=== PATIENT | male | born 1985 | race Caucasian/White ===

== ENCOUNTER 2016-06-16 09:56 | Inpatient (IN) | payer MEDICAID ==
[~2016-06-16] VITALS: Ht 185.4 cm; Wt 104.4 kg
[2016-06-16 10:34] LABS: Basophils # (auto) 0 uL; Basophils % (auto) 0.3 % (0.0-2.0); Eosinophils # (auto) 0.1 uL; Eosinophils % (auto) 1.8 % (0.0-7.0); Hematocrit 41.8 % (41.0-53.0); Hemoglobin 13.9 g/dL (13.5-17.5); Lymphocytes % (auto) 30.8 % (10.0-50.0); Mean Corpuscular Hemoglobin 27.8 pg (28.0-32.0); Mean Corpuscular Hgb Conc. 33.3 g/dL (32.0-36.0); Mean Corpuscular Volume 83.5 fL (80.0-100.0); Mean Platelet Volume 7.6 fL (7.4-10.4); Monocytes # (auto) 0.4 uL; Monocytes % (auto) 5.7 % (0.0-12.0); Neutrophils % (auto) 61.4 % (37.0-80.0); Platelet Count (auto) 167 10^3/uL (140-450); White Blood Cell 6.4 10^3/uL (4.4-10.8)
[2016-06-16 11:10] LABS: BUN/Creatinine Ratio 15.2; Bilirubin, Total 0.4 mg/dL (0.2-1.0); Calcium 8.8 mg/dL (8.5-10.1); Potassium 3.8 mmol/L (3.5-5.1); Total Protein 7.6 g/dL (6.4-8.2)
[2016-06-16] MEDS ORDERED: SODIUM CHLORIDE 0.9% 1,000 ML IVB ONE (11:27)
[2016-06-16 11:29] LABS: Urine RBC None Seen /hpf (0 - 3)
[2016-06-16 12:30] LABS: Urine Bilirubin Negative (Negative); Urine Blood Negative /uL (Negative); Urine Color Yellow (Yellow); Urine Glucose Normal (Normal); Urine Ketone Negative (Negative); Urine Nitrite Negative (Negative); Urine Urobilinogen Normal (Negative); Urine pH 5.5 (5.0-8.0)
[2016-06-16] MEDS ORDERED: ONDANSETRON HCL 4 MG/2 ML VIAL IV ONE (13:15)
[2016-06-16] MEDS ORDERED: NALBUPHINE HCL 10 MG/1ml INJECTION IV ONE (13:15)
[2016-06-16] MEDS ORDERED: SODIUM CHLORIDE 0.9% 1,000 ML IV ONE ×2 (13:15→19:00)
[2016-06-16] MEDS ORDERED: PROCHLORPERAZINE EDISYLATE 5 MG/ML 2ML VIAL IV PRN (14:45)
[2016-06-16] MEDS ORDERED: MORPHINE SULF INJ 2 MG/ML SYRINGE 1ML IV PRN (14:45)
[2016-06-16] MEDS: SODIUM CHLORIDE 0.9% 1,000 ML IV SCH ×2 (14:54→22:10)
[2016-06-16] MEDS ORDERED: metroNIDAZOLE 500MG/100ML 100 ML IV ONE (15:00)
[2016-06-16] MEDS ORDERED: cefTRIAXone 1GM/50ML D5W 50 ML IV ONE (15:00)
[2016-06-16] MEDS ORDERED: FAMOTIDINE (10MG/ML) 2ML VL IV ONE (15:00)
[2016-06-16 15:08] LABS: Cholesterol 109 mg/dL (< 200); HDL Cholesterol 28 mg/dL (40-59); LDL Cholesterol 77 mg/dL (< 100); Triglycerides 125 mg/dL (< 150)
[2016-06-16 17:00] VITALS: BP 86/49
[2016-06-16 22:00] VITALS: BP 86/83
[2016-06-16] MEDS: FAMOTIDINE (10MG/ML) 2ML VL IV SCH (22:16)
[2016-06-16] MEDS: metroNIDAZOLE 500MG/100ML 100 ML IV SCH (22:16)
[2016-06-16 23:00] VITALS: BP 91/40
[2016-06-16] MEDS ORDERED: ALBUMIN 5% 250 ML IV ONE (23:45)
[2016-06-17] MEDS ORDERED: ALBUMIN 5% 250 ML IV ONE (00:15)
[2016-06-17 05:00] VITALS: BP 98/53
[2016-06-17] MEDS: SODIUM CHLORIDE 0.9% 1,000 ML IV SCH ×4 (06:07→23:43)
[2016-06-17] MEDS: metroNIDAZOLE 500MG/100ML 100 ML IV SCH (06:07)
[2016-06-17 06:29] LABS: Basophils # (auto) 0 uL; Basophils % (auto) 0.4 % (0.0-2.0); Eosinophils # (auto) 0.1 uL; Eosinophils % (auto) 2.5 % (0.0-7.0); Hematocrit 36.6 % (41.0-53.0); Hemoglobin 12.2 g/dL (13.5-17.5); Lymphocytes # (auto) 1.8 uL; Lymphocytes % (auto) 35.3 % (10.0-50.0); Mean Corpuscular Hemoglobin 27.9 pg (28.0-32.0); Mean Corpuscular Hgb Conc. 33.3 g/dL (32.0-36.0); Mean Corpuscular Volume 83.9 fL (80.0-100.0); Mean Platelet Volume 7.9 fL (7.4-10.4); Monocytes # (auto) 0.3 uL; Monocytes % (auto) 6.6 % (0.0-12.0); Neutrophils # (auto) 2.7 uL; Neutrophils % (auto) 55.2 % (37.0-80.0); Platelet Count (auto) 138 10^3/uL (140-450); Red Cell Distribution Width 13.9 % (11.6-16.0)
[2016-06-17 06:42] LABS: Potassium 3.9 mmol/L (3.5-5.1)
[2016-06-17 06:46] LABS: Albumin 3.2 g/dL (3.4-5.0); BUN/Creatinine Ratio 12.1; Calcium 7.8 mg/dL (8.5-10.1)
[2016-06-17 06:49] LABS: Bilirubin, Total 0.6 mg/dL (0.2-1.0); Total Protein 5.9 g/dL (6.4-8.2)
[2016-06-17 09:00] VITALS: BP 97/55
[2016-06-17] MEDS ORDERED: cefTRIAXone 1GM/50ML D5W 50 ML IV SCH (09:00)
[2016-06-17] MEDS: FAMOTIDINE (10MG/ML) 2ML VL IV SCH ×2 (09:16→21:47)
[2016-06-17 13:00] VITALS: BP 104/64
[2016-06-17] MEDS ORDERED: HYDROcodone-ACET 5/325MG TAB PO PRN (13:00)
[2016-06-17] MEDS ORDERED: MORPHINE SULF INJ 2 MG/ML SYRINGE 1ML IV PRN (13:00)
[2016-06-17] MEDS: HYDROcodone-ACET 5/325MG TAB PO PRN ×2 (14:43→20:30)
[2016-06-17 17:00] VITALS: BP 104/63
[2016-06-17 22:00] VITALS: BP 116/64
[2016-06-18 05:45] VITALS: BP 105/65
[2016-06-18] MEDS: SODIUM CHLORIDE 0.9% 1,000 ML IV SCH (06:09)
[2016-06-18] MEDS: HYDROcodone-ACET 5/325MG TAB PO PRN ×2 (06:27→11:36)
[2016-06-18 07:37] LABS: BUN/Creatinine Ratio 10.5; Calcium 8.4 mg/dL (8.5-10.1)
[2016-06-18 07:46] LABS: Basophils # (auto) 0 uL; Basophils % (auto) 0.4 % (0.0-2.0); Eosinophils # (auto) 0.1 uL; Eosinophils % (auto) 2.1 % (0.0-7.0); Hemoglobin 13.1 g/dL (13.5-17.5); Lymphocytes # (auto) 1.7 uL; Mean Corpuscular Hemoglobin 27.9 pg (28.0-32.0); Mean Corpuscular Hgb Conc. 33.4 g/dL (32.0-36.0); Mean Corpuscular Volume 83.5 fL (80.0-100.0); Monocytes # (auto) 0.3 uL; Monocytes % (auto) 6.2 % (0.0-12.0); Neutrophils # (auto) 2.3 uL; Neutrophils % (auto) 52.3 % (37.0-80.0); Platelet Count (auto) 142 10^3/uL (140-450); Red Cell Distribution Width 13.8 % (11.6-16.0); White Blood Cell 4.4 10^3/uL (4.4-10.8)
[2016-06-18 08:00] VITALS: BP 105/65
[2016-06-18 08:42] VITALS: BP 107/61
[2016-06-18] MEDS: FAMOTIDINE (10MG/ML) 2ML VL IV SCH (09:24)
[2016-06-18 11:41] VITALS: BP 107/61
== END 2016-06-18 13:00 | disposition home or self-care (01) | DRG 282 ==
LOC: ER 09:56 → TELE 09:57 → CENTRAL 17:47
PROVIDERS: ADMIT Internal Medicine; ATTEND Internal Medicine
DX: K85.90 Acute pancreatitis without necrosis or infection, unspecified (principal); R00.1 Bradycardia, unspecified; R73.9 Hyperglycemia, unspecified; K59.00 Constipation, unspecified; K86.1 Other chronic pancreatitis; Z82.49 Family history of ischemic heart disease and other diseases of the circulatory system; F10.10 Alcohol abuse, uncomplicated; F17.200 Nicotine dependence, unspecified, uncomplicated; F19.10 Other psychoactive substance abuse, uncomplicated
CPT/HCPCS: 36415; 71010; 74176; 76705; 80048; 80053; 80061; 80307; 81001; 82150; 83690; 83735; 84439; 84443; 84481; 85025; 96361; 96365; 96367; 96375; J0696; J2405; J3490